=== PATIENT | male | born 1945 | race Caucasian/White ===

== ENCOUNTER 2023-01-01 13:03 | Day surgery (SDC) | payer MEDICARE ==
[~2023-01-01] VITALS: Ht 182.9 cm; Wt 104.0 kg
[2023-01-01] MEDS ORDERED: BUSP5 (13:21)
[2023-01-01] MEDS ORDERED: BENA20 (13:21)
[2023-01-01] MEDS ORDERED: METO25ER (13:21)
[2023-01-01] MEDS ORDERED: ESOM20 (13:22)
[2023-01-01] MEDS ORDERED: TAMS.4ER (13:22)
[2023-01-01] MEDS ORDERED: ASPI81CH (13:22)
[2023-01-01] MEDS ORDERED: ZOCOR20 MG (13:22)
[2023-01-01] MEDS ORDERED: LEVSOD100 (13:22)
[2023-01-01] MEDS ORDERED: Vitamin B-1250 MC1 (13:23)
[2023-01-01] MEDS ORDERED: MULTI-VITAMIN1 EAC2 (13:23)
[2023-01-01] MEDS ORDERED: C COMPLEX1000 M1 (13:23)
[2023-01-01 14:30] VITALS: BP 120/75
== END 2023-01-01 14:20 | disposition home or self-care (01) ==
LOC: ORSCSDS 13:03
PROVIDERS: Internal Medicine Gastroenterology
PROC: 0DB68ZX Excision of Stomach, Via Natural or Artificial Opening Endoscopic, Diagnostic (ICD-10-PCS; principal; 2023-01-01 14:30)
DX: R10.13 Epigastric pain (principal); K21.00 Gastro-esophageal reflux disease with esophagitis, without bleeding; K44.9 Diaphragmatic hernia without obstruction or gangrene; I12.9 Hypertensive chronic kidney disease with stage 1 through stage 4 chronic kidney disease, or unspecified chronic kidney disease; N18.30 Chronic kidney disease, stage 3 unspecified; E03.9 Hypothyroidism, unspecified; E78.2 Mixed hyperlipidemia; Z79.82 Long term (current) use of aspirin; Z79.899 Other long term (current) drug therapy
CPT/HCPCS: 88305; 88342; J2704; J7120